=== PATIENT | female | born 1935 | race Caucasian/White ===

== ENCOUNTER → 2016-12-01 12:19 | Outpatient (CLI) | payer MEDICARE ==
[2015-06-11 10:37] VITALS: BMI 31.9
[~2016-12-01 12:19] MED LIST: ASPIRIN325 MG PO; GEMFIBROZIL600 MG PO; GLIMEPIRIDE4 MG PO; HYZAAR 100-25 T1 TAB PO; LANTUS INSULIN10 ML SC; NORVASC5 MG PO; PLAVIX75 MG PO; ZEBETA10 MG PO; [UNRECOGNIZED DRUG - OTHER]
== END | disposition home or self-care (01) ==
LOC: D.US 11-17 10:00
DX: N18.3 Chronic kidney disease, stage 3 (moderate) (principal); I10 Essential (primary) hypertension; E11.22 Type 2 diabetes mellitus with diabetic chronic kidney disease; Z68.30 Body mass index [BMI] 30.0-30.9, adult

== ENCOUNTER 2017-02-02 08:20 | Outpatient (CLI) | payer MEDICARE ==
--- NOTE | ~2017-02-02 | HEMODYNAMI ---
PATIENT:GINNY SANDERS MEDICAL RECORD: [id number] : 35 [id number] ADMISSION DATE: 02/02/17 Generatedon:02/03/20179:07 Patient name: GINNY SANDERS Patient #: [id number] SSN: : 1935 Date of study: 02/03/2017 Page: Of Hemodynamic Procedure Report Patient Data Patient Demographics Procedure consent was obtained First Name: GINNY Gender: Female Last Name: MARILYN : 1935 Middle Initial: KRISTEN Age: 81 year(s) Patient #: [id number] Race: Additional ID: [id number] Contact details [address]: [address] [place] [address] State: [place] City: [place] Zip code: [address] Past Medical History Allergies Allergen Reaction Date Comments Reported Other allergy 02/02/2017 Codeine Codeine 02/03/2017 Admission Admission Data Admission Date: 02/02/2017 Admission Time: 10:40 Admit Source: Other Room #: D.2118 Lab Results Lab Result Date: 02/02/2017 Lab Result Time: 9:00 Biochemistry Name Units Result Min Max BUN mg/dl 34 --(----)-* 7 18 Creatinine mg/dl 1.7 --(----)-* 0.6 1.3 CBC Name Units Result Min Max Hematocrit % 38 *-(----)-- 42 54 Hemoglobin g/dl 12.4 *-(----)-- 13.5 17.5 Procedure Procedure Types Cath Procedure Diagnostic Procedure FFR/IVUS Intra-Coronary IVUS Initial PCI Procedure Coronary Stent Initial Miscellaneous Procedures Moderate Sedation up to 15 minutes Procedure Description Procedure Date Procedure Date: 02/03/2017 Procedure Start Time: 8:44 Procedure End Time: 9:06 Procedure Staff Name Function Mendoza Lopez MD Performing Physician Rose Woods RT Scrub Glenis Hunter RN Nurse Vic Cervantes RT Monitor Rebeca Chin RT Monitor Procedure Data Cath Procedure Fluoroscopy Diagnostic fluoroscopy Total fluoroscopy Time: 4.9 time: 4.9 min min Diagnostic fluoroscopy Total fluoroscopy dose: 385 dose: 385 mGy mGy Contrast Material Contrast Material Type Amount (ml) Isovue 300 60 Entry Location Entry Primary Successful Side Size Upsize Upsize Entry Closure Succes sful Closure Location (Fr) 1 (Fr) 2 (Fr) Remarks Device Remarks Femoral Left 6 Fr Exoseal artery Short Estimated blood loss: 10 ml Procedure Complications No complications Procedure Medications Medication Administration Route Dosage Oxygen NC 2 l/min Heparin Flush Bag added to field 2 bags (1000units/500ml NS) 0.9% NaCl I.V. 100 ml/hr Fentanyl I.V. 50 mcg Versed I.V. 1 mg Fentanyl I.V. 50 mcg Versed I.V. 1 mg Heparin Bolus I.V. 4000 units Fentanyl I.V. 50 mcg Hemodynamics Rest HGB: 12.4 (g/dl) Heart Rate: 59 (bpm) Snapshots Pre Cath Intra NCS Post Cath Vital Signs Time Heart Resp SPO2 etCO2 [id number] NIBP (mmHg) Rhythm Pain Sedation Rate (ipm) (%) (mmHg) (mmHg) Status Level (bpm) 8:22:53 59 18 98 0 0 160/61(126) NSR 0 (11) 10(A) , No pain 8:27:42 61 17 95 0 0 154/64(118) NSR 0 (11) 10(A) , No pain 8:32:26 58 16 97 0 0 123/53(98) NSR 0 (11) 10(A) , No pain 8:37:11 59 17 95 0 0 111/46(83) NSR 0 (11) 10(A) , No pain 8:41:53 58 18 91 0 0 113/49(85) NSR 0 (11) 10(A) , No pain 8:46:36 64 18 89 0 0 101/51(80) NSR 0 (11) 9(A) , No pain 8:51:17 61 17 93 0 0 113/50(88) NSR 0 (11) 9(A) , No pain 8:55:59 65 17 97 0 0 111/50(92) NSR 0 (11) 9(A) , No pain 9:00:42 60 18 97 0 0 115/54(93) NSR 0 (11) 9(A) , No pain 9:05:23 98 0 0 No Cuff NSR 0 (11) 9(A) , No pain Medications Time Medication Route Dose Verified Delivered Reason Notes Effectiveness by by 8:27:39 Oxygen NC 2 Mendoza Magdaleno l/min John Rockwell RN 8:28:30 Heparin Flush added 2 Mendoza Magdaleno used for Bag to bags John Rockwell RN procedure (1000units/500ml field NS) 8:31:12 0.9% NaCl I.V. 100 Mendoza Magdaleno Per physician ml/hr John Rockwell RN 8:41:34 Fentanyl I.V. 50 Mendoza Magdaleno for sedation mcg John Rockwell RN 8:41:44 Versed I.V. 1 mg Mendoza Magdaleno for sedation John Rockwell RN 8:43:03 Fentanyl I.V. 50 Mendoza Magdaleno for sedation mcg John Rockwell RN 8:43:08 Versed I.V. 1 mg Mendoza Magdaleno for sedation John Rockwell RN 8:46:50 Heparin Bolus I.V. 4000 Mendoza Magdaleno for units John Rockwell RN anticoagulation 8:46:56 Fentanyl I.V. 50 Mendoza Magdaleno for sedation mcg John Rockwell RN Procedure Log Time Note 8:03:41 Diagnostic Cath status Elective 8:03:47 Rose Woods RT(R) sent for patient. Start room use. 8:03:50 Time tracking: Regular hours 8:03:56 Plan of Care:Hemodynamics will remain stable., Cardiac rhythm will remain stable., Comfort level will be maintained., Respiratory function will remain adequate., Patient/ family verbilizes understanding of procedure., Procedure tolerated without complication., Recovers from procedure without complications.. 8:15:18 H&P Date Dictated: 02/02/2017 Within 30 days and on chart., H&P Addendum completed by physician on day of procedure. (MUST COMPLETE FOR ALL OUTPATIENTS). 8:20:23 Patient received from Med II to CCL 1 Alert and oriented. Tansferred to table in Supine position. 8:21:40 Warm blankets applied, and irasema hugger turned on for patient comfort. 8:21:41 Correct patient and procedure confirmed by team. 8:21:44 Signed procedure consent form obtained from patient. 8:21:45 ECG and BP/O2 sat monitors applied to patient. 8:21:48 Vital chart was started 8:21:52 Baseline sample Acquired. 8:22:03 Rhythm: sinus rhythm 8:22:07 Full Disclosure recording started 8:22:35 Pre-procedure instructions explained to patient. 8:22:37 Pre-op teaching completed and patient verbalized understanding. 8:22:43 Family in patients room. 8:22:46 Patient NPO since Midnight. 8:23:04 Patient allergic to Codeine 8:23:09 Is the patient allergic to Iodine/contrast media? No. 8:23:21 Is patient on blood thinner?Yes 8:23:32 ACC The patient was administered the following blood thiners within the last 24 hours: ACCPlavix 8:24:36 Patient diabetic? Yes. 8:24:38 If diabetic: On Metformin? Yes 8:24:50 If on Metformin: Last Dose? 02/01/2017 8:25:08 Snore? Yes 8:25:18 Sleep apnea? No 8:25:21 Deviated septum? No 8:25:23 Opens mouth fully? Yes 8:25:26 Sticks out tongue? Yes 8:25:31 Airway obstruction? No ? 8:25:36 Dentures? No ? 8:25:54 Pre procedure: left dorsailis pedis pulse 2+ Normal; easily identifiable; not easily obliterated 8:26:01 Patient pain scale 0/10 ?. 8:26:13 IV patent on arrival in left forearm with 0.9% NaCl at O. 8:26:48 Lab results completed and on chart. 8:26:54 Left groin area was prepped with chlora-prep and draped in sterile fashion 8:27:19 Alarms reviewed by R. N. 8:27:19 Sharps counted by scrub and verified by R.N. 8:27:39 Oxygen 2 l/min NC was administered by Magdaleno Rockwell RN; ; 8:28:30 Heparin Flush Bag (1000units/500ml NS) 2 bags added to field was administered by Magdaleno Rockwell RN; used for procedure; 8:31:12 0.9% NaCl 100 ml/hr I.V. was administered by Magdaleno Rockwell RN; Per physician; 8:33:09 Previous problem with sedation/anesthesia? No ? 8:33:32 Physician paged 8:33:41 Use device set Femoral PCI 8:33:44 Tegaderm 4 x 4 opened to sterile field. 8:33:45 Acist Manifold opened to sterile field. 8:33:47 Acist Syringe opened to sterile field. 8:33:48 Acist Hand Control opened to sterile field. 8:33:50 Bag Decanter opened to sterile field. 8:33:51 Medline Cath Pack opened to sterile field. 8:33:51 Terumo 6Fr [place] Sheath opened to sterile field. 8:33:52 [place] 260cm J .035 wire opened to sterile field. 8:33:52 Merit BasixCompak Inflation Kit opened to sterile field. 8:34:01 [place] Whisper J 300cm 0.014 guide wire opened to sterile field. 8:36:04 Zero performed for pressure channel P1 8:40:35 Physician arrived 8:41:34 Fentanyl 50 mcg I.V. was administered by Magdaleno Rockwell RN; for sedation; 8:41:44 Versed 1 mg I.V. was administered by Magdaleno Rockwell RN; for sedation; 8:43:03 Fentanyl 50 mcg I.V. was administered by Magdaleno Rockwell RN; for sedation; 8:43:08 Versed 1 mg I.V. was administered by Magdaleno Rockwell RN; for sedation; 8:43:41 --------ALL STOP TIME OUT------ 8:43:43 Final Timeout: patient, procedure, and site verified with staff and physician. All members of the team are in agreement. 8:43:45 Left groin site verified by team. 8:43:50 Physical assessment completed. ASA score P 2 - A patient with mild systemic disease as per Mendoza Lopez MD. 8:43:54 Sedation plan: IV Moderate Sedation Versed, Fentanyl 8:44:02 Procedure started. 8:44:31 Local anesthetic to left femerol artery with Lidocaine 2% by Mendoza Lopez MD.INITIAL ACCESS ONLY 8:45:04 RaveMobileSafety.comtronic Launcher 6Fr AR 2.0 SH guide catheter opened to sterile field. 8:45:31 Study PCI Site: [place] dRCA has 75% stenosis. 8:46:21 A 6 Fr Short sheath was inserted into the Left Femoral artery 8:46:34 6 Fr AR 2 guide catheter was inserted over the wire 8:46:50 Heparin Bolus 4000 units I.V. was administered by Magdaleno Rockwell RN; for anticoagulation; 8:46:56 Fentanyl 50 mcg I.V. was administered by Magdaleno Rockwell RN; for sedation; 8:47:10 WHISPER wire advanced. 8:48:39 Wire advanced across lesion. 8:48:52 [place] Jena Eagleye IVUS Catheter opened to sterile field. 8:49:02 IVUS catheter advanced over wire. 8:50:04 IVUS pass to RCA lesion performed. 8:50:06 IVUS catheter removed over wire. 8:51:34 Inflation Number: 1 A Keshav OTW 2.25 x 15 stent was prepped and advanced across the Dist RCA. The stent was deployed at 13 CALLY for 0:10 (min:sec). 8:53:45 Stent catheter was removed intact over wire. 8:54:23 Inflation Number: 1 A Keshav OTW 3.0 x 15 stent was prepped and advanced across the Mid RCA. The stent was deployed at 17 CALLY for 0:10 (min:sec). 8:54:32 Inflation number: 2 The stent balloon was then re-inflated across the Mid RCA to 15 CALLY for 0:10 (min:sec). 8:54:44 MULTIPLE INFLATIONS AT 17ATM 8:55:27 ACC Post-intervention MICHAEL Flow is 0. 8:55:37 ACC Post-intervention MICHAEL Flow is 3. 8:55:43 Stent catheter was removed intact over wire. 8:55:44 Wire removed. 8:55:45 Guide catheter removed. 8:56:02 Cordis 6Fr Exoseal opened to sterile field. 8:56:23 Sheath removed intact; hemostasis achieved with Exoseal to the Left Femoral artery. 8:56:37 Procedure ended.(Physican Out) 8:56:55 Fluoroscopy time 04.90 minutes. 8:56:59 Flurop Dose total: 385 8:56:59 Fluoroscopy dose: 385 mGy 8:57:04 Contrast amount:Isovue 300 60ml. 8:57:06 Sharps counted by scrub and verified by EvelioN. 8:57:10 Insertion/operative site no bleeding no hematoma. 8:57:14 Post-op/insertion site Left Femoral artery dressed using a 4 x 4 and Tegaderm. 8:57:29 Post Procedure Pulses reassessed and unchanged 8:57:37 Post-procedure physical assessment completed. ASA score P 2 - A patient with mild systemic disease as per Mendoza Lopez MD. 8:57:42 Post procedure rhythm: unchanged. 8:57:44 Estimated blood loss: 10 ml 8:57:51 Post procedure instruction explained to patient.Patient verbalizes understanding. 8:57:56 Patient needs reinforcement of post procedure teaching. 8:59:11 Procedure and supply charges have been captured, reviewed, submitted and are correct. 8:59:18 Procedure Complication : No complications 9:00:53 Procedure type changed to Cath procedure, Diagnostic procedure, FFR/IVUS, Intra-Coronary IVUS Initial, PCI procedure, Coronary Stent Initial, Miscellaneous Procedures, Moderate Sedation up to 15 minutes 9:06:22 Vital chart was stopped 9:06:26 See physician's report for complete and final results. 9:06:29 Report given to PCU. 9:06:33 Patient transfered to PCU with Stretcher. 9:06:37 Procedure ended. 9:06:37 Full Disclosure recording stopped 9:06:50 End room use (Document Last) Intervention Summary Intervention Notes Time ActionType Lesion and Equipment Action# Pressure Duration Attributes Used 8:51:34 Place stent Dist RCA [place] OTW 1 13 00:10 2.25 x 15 stent 8:54:23 Place stent Mid RCA [place] OTW 1 17 00:10 3.0 x 15 stent 8:54:32 Reinflate Mid RCA [place] OTW 2 15 00:10 stent 3.0 x 15 balloon stent Device Usage Item Name Manufacture Quantity Catalog Hospital Part Current Minimal Lot# / Number Charge Number Stock Stock Serial# Code Tegaderm 4 3M 1 [id number] 600872 5 x 4 Acist Acist 1 95697 926215 071376 755944 5 Manifold Medical Systems Inc Acist Acist 1 69710 236915 782666 288538 20 Syringe Medical Systems Inc Acist Hand Acist 1 77064 140022 870017 067284 5 Nuserv Systems Inc Bag Microtek 1 [facility] 234401 26822 123203 5 Decanter [employer] Inc. Medline Cardinal 1 [id number] 388291 34868 135754 5 Cath Pack Health Terumo 6Fr Terumo 1 [id number] 086321 918597 530304 [address] [facility] [place] 1 634394 534750 009219 282293 30 260cm J .035 wire Merit Merit 1 [id number] 836326 763630 663871 15 BasixCompak Medical Inflation Kit [place] 1 [id number] 685080 831456 584842 5 Whisper J Vascular 300cm 0.014 guide wire Medtronic Medtronic 1 [id number] 903367 33126 376609 1 Launcher 6Fr AR 2.0 SH guide catheter [place] 1 [id number] 732772 193324 868151 8 Jena Eagleye IVUS Catheter Keshav OTW Medtronic 1 [id number] 747966 32834 884466 5 [id number] 2.25 x 15 stent [place] OTW Medtronic 1 [id number] 306714 527106 365847 5 [id number] 3.0 x 15 stent Cordis 6Fr Cardinal 1 [id number] 280777 499798 651887 10 [facility] Signature Audit [place] Stage Time Signature Unsigned Intra-Procedure 02/03/2017 Rebeca Chin 9:07:04 AM RT(R) Signatures Monitor : Vic Cervantes RT Signature : Date : Time : Monitor : Rebeca Chin Signature : RT Date : Time : [facility] [address] [place] [address]
--- NOTE | ~2017-02-02 | HEMODYNAMI ---
PATIENT:GINNY SANDERS MEDICAL RECORD: [id number] : 35 LOCATION:RALPH ADMISSION DATE: 02/02/17 Generatedon:02/02/201710:38 Patient name: GINNY SANDERS Patient #: [id number] SSN: : 1935 Date of study: 02/02/2017 Page: Of Hemodynamic Procedure Report Patient Data Patient Demographics Procedure consent was obtained First Name: GINNY Gender: Female Last Name: MARILYN : 1935 Middle Initial: KRISTEN Age: 81 year(s) Patient #: [id number] Race: Additional ID: [id number] Contact details [address]: [address] [place] [address] State: [place] City: [place] Zip code: [address] Past Medical History Allergies Allergen Reaction Date Comments Reported Other allergy 02/02/2017 Codeine Admission Admission Data Admission Date: 02/02/2017 Admission Time: 8:20 Admit Source: Other Lab Results Lab Result Date: 02/02/2017 Lab Result Time: 9:00 Biochemistry Name Units Result Min Max BUN mg/dl 34 --(----)-* 7 18 Creatinine mg/dl 1.7 --(----)-* 0.6 1.3 CBC Name Units Result Min Max Hematocrit % 38 *-(----)-- 42 54 Hemoglobin g/dl 12.4 *-(----)-- 13.5 17.5 Procedure Procedure Types Cath Procedure Diagnostic Procedure LHC LHC w/Coronaries FFR/IVUS Intra-Coronary IVUS Initial PCI Procedure Coronary Stent Initial Miscellaneous Procedures Moderate Sedation up to 30 minutes Procedure Description Procedure Date Procedure Date: 02/02/2017 Procedure Start Time: 10:12 Procedure End Time: 10:34 Procedure Staff Name Function Mendoza Lopez MD Performing Physician Rsoe Woods RT Scrub Glenis Hunter RN Nurse Vincenzo Amaral RT Monitor Procedure Data Cath Procedure Fluoroscopy Diagnostic fluoroscopy Total fluoroscopy Time: 3.9 time: 3.9 min min Diagnostic fluoroscopy Total fluoroscopy dose: 889 dose: 889 mGy mGy Contrast Material Contrast Material Type Amount (ml) Isovue 300 90 Entry Location Entry Primary Successful Side Size Upsize Upsize Entry Closure Succes sful Closure Location (Fr) 1 (Fr) 2 (Fr) Remarks Device Remarks Femoral Right 5 Fr 6 Fr Exoseal artery Short Estimated blood loss: 10 ml Diagnostic catheters Device Type Used For End Catheter Placement Cordis 5Fr Pigtail Procedure Catheter (MP) Cordis 5Fr JL 4.0 Procedure Catheter (MP) Cordis 5Fr 3DRC Catheter Procedure (MP) Procedure Complications No complications Procedure Medications Medication Administration Route Dosage Oxygen NC 2 l/min Lidocaine 2% added to field 20 Heparin Flush Bag added to field 2 bags (1000units/500ml NS) 0.9% NaCl I.V. 100 ml/hr Versed I.V. 1 mg Fentanyl I.V. 50 mcg Heparin Bolus I.V. 4000 units Versed I.V. 1 mg Fentanyl I.V. 50 mcg Integrilin (Bolus I.V. 7.3 ml 2mg/ml) Plavix P.O. 600 mg Hemodynamics Rest Heart Rate: 55 (bpm) Pressure Samples Time Site Value (mmHg) Purpose Heart Use Rate(bpm) 10:17 LV 114/5,19 Snapshot 62 Snapshots Pre Cath Intra NCS Post Cath Vital Signs Time Heart Resp SPO2 NIBP (mmHg) Rhythm Pain Sedation Rate (ipm) (%) Status Level (bpm) 9:59:23 57 14 100 135/67(101) NSR 0 (11) 10(A) , No pain 10:03:43 64 20 100 132/66(109) NSR 0 (11) 10(A) , No pain 10:08:01 62 14 99 127/69(107) NSR 0 (11) 10(A) , No pain 10:12:22 62 26 98 130/59(106) NSR 0 (11) 10(A) , No pain 10:16:37 62 15 98 103/54(67) NSR 0 (11) 9(A) , No pain 10:20:56 62 15 97 107/43(70) NSR 0 (11) 9(A) , No pain 10:25:08 63 14 97 94/49(69) NSR 0 (11) 9(A) , No pain 10:29:20 61 17 97 102/49(74) NSR 0 (11) 10(A) , No pain 10:33:34 61 17 97 93/46(65) NSR 0 (11) 10(A) , No pain Medications Time Medication Route Dose Verified Delivered Reason Notes Effectiveness by by 10:11:07 Lidocaine 2% added 20ml Mendoza Donaldson for local to vial John Lopez MD anesthetic field 10:13:01 Oxygen NC 2 Mendoza Buffie used for l/min John Hunter RN procedure 10:13:13 Heparin Flush added 2 Mendoza Mendoza used for Bag to bags John Lopez MD procedure (1000units/500ml field NS) 10:13:24 0.9% NaCl I.V. 100 Mendoza Buffie Per physician ml/hr John Hunter RN 10:13:34 Versed I.V. 1 mg Mendoza Galvin for sedation John Hunter RN 10:13:39 Fentanyl I.V. 50 Mendoza Gonzalezie for sedation mcg John Hunter RN 10:18:25 Heparin Bolus I.V. 4000 Mendoza Gonzalezie for verifi ed units John Hunter RN anticoagulation with dr lopez 10:23:04 Versed I.V. 1 mg Mendoza Gonzalezie for sedation John Hunter RN 10:23:08 Fentanyl I.V. 50 Mendoza Gonzalezie for sedation mcg John Hunter RN 10:26:02 Integrilin I.V. 7.3 Mendoza Galvin for Wasted (Bolus 2mg/ml) ml John Hunter RN antiplatelet 2.7 ml therapy of vial 10:33:06 Plavix P.O. 600 Mendoza Galvin for mg John Hunter RN antiplatelet therapy Procedure Log Time Note 9:35:58 Informed consent obtained and on chart 9:36:01 Admit Source: Other 9:36:16 Diagnostic Cath status Elective 9:36:18 Rose Woods RT(R) sent for patient. Start room use. 9:36:22 Time tracking: Regular hours 9:36:26 Plan of Care:Hemodynamics will remain stable., Cardiac rhythm will remain stable., Comfort level will be maintained., Respiratory function will remain adequate., Patient/ family verbilizes understanding of procedure., Procedure tolerated without complication., Recovers from procedure without complications.. 9:36:35 H&P Date Dictated: 01/26/2017 Within 30 days and on chart., H&P Addendum completed by physician on day of procedure. (MUST COMPLETE FOR ALL OUTPATIENTS). 9:38:32 Lab Result : Hemoglobin 12.4 g/dl 9:38:32 Lab Result : Hematocrit 38 % 9:38:32 Lab Result : BUN 34 mg/dl 9:38:32 Lab Result : Creatinine 1.7 mg/dl 9:38:38 Lab results completed and on chart. 9:44:14 Patient received from Pre/Post Procedure Room to CCL 2 Alert and oriented. Tansferred to table in Supine position. 9:44:15 Warm blankets applied, and irasema hugger turned on for patient comfort. 9:44:15 Correct patient and procedure confirmed by team. 9:44:16 ECG and BP/O2 sat monitors applied to patient. 9:44:18 Pre-procedure instructions explained to patient. 9:44:18 Pre-op teaching completed and patient verbalized understanding. 9:44:20 Family in waiting room. 9:44:21 Patient NPO since Midnight. 9:44:31 Patient allergic to Other allergyCodeine 9:44:33 Is the patient allergic to Iodine/contrast media? No. 9:54:08 Is patient on blood thinner?No 9:54:09 Was the patient premedicated? Yes 9:54:11 Patient diabetic? Yes. 9:54:13 If diabetic: On Metformin? No 9:54:17 Snore? Yes 9:54:19 Sleep apnea? No 9:54:25 Dentures? No ? 9:54:29 Patient pain scale 0/10 ?. 9:54:36 IV patent on arrival in left forearm with 0.9% NaCl at KVO. 9:54:42 Right groin area was prepped with chlora-prep and draped in sterile fashion 9:54:44 Alarms reviewed by R. N. 9:54:45 Sharps counted by scrub and verified by R.N. 9:54:46 Physician paged 9:58:10 Vital chart was started 9:58:19 Baseline sample Acquired. 9:58:21 Rhythm: sinus rhythm 9:58:23 Full Disclosure recording started 9:58:28 Use device set Femoral Dx 9:58:30 Tegaderm 4 x 4 opened to sterile field. 9:58:31 Acist Hand Control opened to sterile field. 9:58:31 Acist Manifold opened to sterile field. 9:58:32 Acist Syringe opened to sterile field. 9:58:33 Bag Decanter opened to sterile field. 9:58:37 Medline Cath Pack opened to sterile field. 9:58:37 Terumo 5Fr [place] Sheath opened to sterile field. 9:58:38 [place] 260cm J .035 wire opened to sterile field. 9:58:38 Diagnostic Infinity 5Fr Multipack catheter opened to sterile field. 10:09:22 Physician arrived 10:: --------ALL STOP TIME OUT------ :: Final Timeout: patient, procedure, and site verified with staff and physician. All members of the team are in agreement. 10:09:24 Right groin site verified by team. 10::26 Physical assessment completed. ASA score P 2 - A patient with mild systemic disease as per Mendoza Lopez MD. 10:09:29 Sedation plan: IV Moderate Sedation Versed, Fentanyl 10:10:43 Zero performed for pressure channel P1 10:10:46 Zero performed for pressure channel P1 10:11:07 Lidocaine 2% 20ml vial added to field was administered by Mendoza Lopez MD; for local anesthetic; 10:11:53 Procedure started. 10:12:37 Local anesthetic to right femoral artery with Lidocaine 2% by Mendoza Lopez MD.INITIAL ACCESS ONLY 10:13:01 Oxygen 2 l/min NC was administered by Glenis Hunter RN; used for procedure; 10:13:13 Heparin Flush Bag (1000units/500ml NS) 2 bags added to field was administered by Mendoza Lopez MD; used for procedure; 10:13:24 0.9% NaCl 100 ml/hr I.V. was administered by Glenis Hunter RN; Per physician; 10:13:34 Versed 1 mg I.V. was administered by Glenis Hunter RN; for sedation; 10:13:39 Fentanyl 50 mcg I.V. was administered by Glenis Hunter RN; for sedation; 10:15:48 A 5 Fr sheath was inserted into the Right Femoral artery 10:16:29 A Cordis 5Fr Pigtail Catheter (MP) was advanced over the wire and used for Procedure. 10:17:28 LV gram done using MANLEY 10:17:30 Injector settings: Ml/sec: 10, Volume: 20, 10:17:35 EF : 60 % 10:17:45 Terumo 6Fr [place] Sheath opened to sterile field. 10:17:52 A Cordis 5Fr JL 4.0 Catheter (MP) was advanced over the wire and used for Procedure. 10:18:19 LCA angiography performed. 10:18:25 Heparin Bolus 4000 units I.V. was administered by Glenis Hunter RN; for anticoagulation; verified with dr lopez 10:19:09 Ventrua Agile Healthisper J 300cm 0.014 guide wire opened to sterile field. 10:19:10 Axis SemiconductorixCompak Inflation Kit opened to sterile field. 10:20:04 Catheter exchanged over wire. 10:20:05 Catheter exchanged over wire. 10:21:53 [place]ag[place]e IVUS Catheter opened to sterile field. 10:22:00 A Cordis 5Fr 3DRC Catheter (MP) was advanced over the wire and used for Procedure. 10:22:04 RCA angiography performed. 10:22:24 Catheter removed. 10:22:30 Sheath upsized to a 6 Fr Short. 10:22:51 Cordis 6FR XBLAD 3.5 guide catheter opened to sterile field. 10:22:57 6 Fr xblad 3.5 guide catheter was inserted over the wire 10:23:00 ClearStarisper wire advanced. 10:23:04 Versed 1 mg I.V. was administered by Glenis Hunter RN; for sedation; 10:23:08 Fentanyl 50 mcg I.V. was administered by Glenis Hunter RN; for sedation; 10:23:31 Wire advanced across lesion. 10:23:36 IVUS catheter advanced over wire. 10:23:48 IVUS pass to LAD lesion performed. 10:24:45 IVUS catheter removed over wire. 10:26:02 Integrilin (Bolus 2mg/ml) 7.3 ml I.V. was administered by Glenis Hunter RN; for antiplatelet therapy; Wasted 2.7 ml of vial 10:28:53 Inflation Number: 1 A [place] OTW 3.5 x 08 stent was prepped and advanced across the Prox LAD. The stent was deployed at 13 CALLY for 0:10 (min:sec). 10::17 Inflation number: 2 The stent balloon was then re-inflated across the Prox LAD to 11 CALLY for 0:10 (min:sec). 10::24 Inflation number: 3 The stent balloon was then re-inflated across the Prox LAD to 11 CALLY for 0:10 (min:sec). 10::39 Stent catheter was removed intact over wire. 10::40 Wire removed. 10::40 Guide catheter removed. 10:29:49 Cordis 6Fr Exoseal opened to sterile field. 10::55 Sheath removed intact; hemostasis achieved with Exoseal to the Right Femoral artery. 10::57 Procedure ended.(Physican Out) 10::55 Fluoroscopy time 03.90 minutes. 10::58 Fluoroscopy dose: 889 mGy 10::58 Flurop Dose total: 889 10:31:01 Contrast amount:Isovue 300 90ml. 10:31:02 Sharps counted by scrub and verified by R.N. 10:31:12 Insertion/operative site no bleeding no hematoma. 10:31:14 Post-op/insertion site Right Femoral artery dressed using a 4 x 4 and Tegaderm. 10:31:17 Post right femoral artery:stable, soft, clean and dry 10:32:14 Post Procedure Pulses reassessed and unchanged 10:32:19 Post-procedure physical assessment completed. ASA score P 2 - A patient with mild systemic disease as per Mendoza Lopez MD. 10:32:20 Post procedure rhythm: unchanged. 10:32:22 Estimated blood loss: 10 ml 10:32:23 Post procedure instruction explained to patient.Patient verbalizes understanding. 10:32:23 Patient needs reinforcement of post procedure teaching. 10:32:32 Procedure type changed to Cath procedure, Diagnostic procedure, LHC, LHC w/Coronaries, FFR/IVUS, Intra-Coronary IVUS Initial, PCI procedure, Coronary Stent Initial, Miscellaneous Procedures, Moderate Sedation up to 30 minutes 10:33:06 Plavix 600 mg P.O. was administered by Glenis Hunter RN; for antiplatelet therapy; 10:34:47 Procedure and supply charges have been captured, reviewed, submitted and are correct. 10:34:49 Procedure Complication : No complications 10:34:51 Vital chart was stopped 10:34:51 See physician's report for complete and final results. 10:34:53 Report given to Pre/Post Procedure Room. 10:34:55 Patient transfered to Pre/Post Procedure Room with Stretcher. 10:34:56 Procedure ended. 10:34:56 Full Disclosure recording stopped 10:35:02 End room use (Document Last) Intervention Summary Intervention Notes Time ActionType Lesion and Equipment Action# Pressure Duration Attributes Used 10:28:53 Place stent Prox LAD [place] OTW 1 13 00:10 3.5 x 08 stent 10:29:17 Reinflate Prox LAD [place] OTW 2 11 00:10 stent 3.5 x 08 balloon stent 10:29:24 Reinflate Prox LAD Keshav OTW 3 11 00:10 stent 3.5 x 08 balloon stent Device Usage Item Name Manufacture Quantity Catalog Hospital Part Current Minima l Lot# / Number Charge Number Stock Stock Serial# Code Tegaderm 4 3M 1 [id number] 615574 025992 965349 5 x 4 Acist Hand Acist 1 46548 587581 317710 690531 5 Control Medical Systems Inc Acist Acist 1 52587 926071 432495 882250 5 Manifold Medical Systems Inc Acist Acist 1 31488 448696 306916 395926 20 Syringe Medical Systems Inc Bag Microtek 1 2002S 810851 06100 866382 5 Decanter Medical Inc. Medline Cardinal 1 [id number] 153309 39029 559360 5 Cath Pack Health Terumo 5Fr Terumo 1 [id number] 178107 533935 124491 [address] [place] [address] [facility] 1 527245 617601 142475 644373 30 260cm J .035 wire Diagnostic Cardinal 1 [id number] 637885 94460 620120 30 Infinity Health 5Fr Multipack catheter Cordis 5Fr Cardinal 1 750404 5 Pigtail Health Catheter (MP) Cordis 5Fr Cardinal 1 514608 5 JL 4.0 Health Catheter (MP) Terumo 6Fr Terumo 1 GWF672 139341 498666 962137 40 [place] Sheath Ventura Ventura 1 [id number] 166081 381352 334126 5 Whisper J Vascular 300cm 0.014 guide wire Merit Merit 1 [id number] 210541 065555 997498 15 BasixCompak Medical Inflation Kit [place] 1 [id number] 327574 174720 928757 8 [place] IVUS Catheter Cordis 5Fr Cardinal 1 347227 5 [facility] Health Catheter (MP) Cordis 6FR Cardinal 1 [id number] 124117 746979 381208 10 XBLAD 3.5 Health guide catheter Keshav OTW Medtronic 1 [id number] 384947 1606056 718529 5 [id number] 3.5 x 08 stent Cordis 6Fr Cardinal 1 EX600 843707 293128 515838 10 [facility] Spot formerly PlacePop Signature Audit [place] Stage Time Signature Unsigned Intra-Procedure 02/02/2017 Vincenzo Amaral 10:38:17 AM RT(R) Signatures Monitor : Vincenzo Amaral RT Signature : Date : Time : [place] [id number] [place] [address]
[2017-02-02 08:39] VITALS: BP 157/57; BMI 31.0
[2017-02-02 09:05] LABS: BASOPHILS 0.3 % (0-2); HEMOGLOBIN 12.4 g/dL (12-16); IMMATURE GRANULOCYTES 0.3 % (0-5); LYMPHOCYTES 21.1 % (15-50); MCH 28.4 pg (26.0-34.0); MCHC 32.6 g/dL (31.0-37.0); MEAN PLATELET VOLUME 11.6 fL (7.4-10.4); MONOCYTES 6.4 % (2-11); NEUTROPHILS 68.9 % (40-80); PLATELET COUNT 255 10x3/uL (130-400); RBC 4.37 10x6/uL (4.00-5.40); WBC 12.1 10x3/uL (4.8-10.8)
[2017-02-02 09:19] LABS: ANION GAP 14.3 mmol/L (8-16); CALCIUM 8.8 mg/dL (8.5-10.1); CARBON DIOXIDE 25.6 mmol/L (21.0-32.0); CREATININE - SERUM 1.7 mg/dL (0.6-1.3); POTASSIUM - SERUM 3.9 mmol/L (3.5-5.1)
--- NOTE | 2017-02-02 11:06 | NUR ---
TRANSFER FROM [facility] BY BED. VS WNL. TIGHT GROIN STABLE WITHOUT BLEEDING OR HEMATOMA NOTED. WILL MONITOR.
[2017-02-02 11:10] VITALS: BP 146/64; BMI 31.0
[2017-02-02 12:10] VITALS: BP 133/62
--- NOTE | 2017-02-02 15:07 | NUR ---
BED REST. GROIN STABLE. ESCORTED TO BR. WILL CONT. PLAN OF CARE.
[2017-02-02 15:26] VITALS: BP 115/54
--- NOTE | 2017-02-02 19:32 | NUR ---
ASSESSMENT COMPLETE. A&O. RESPERATIONS EVEN ON RA. IV TO LEFT WRIST SL, SITE CLEAN AND DRY. REMINDED OF NOTHING TO EAT OR DRINK AFTER MN USE TO HAVING HEART CATH IN AM. PT STATED UNDERSTANDING. DENIES PAIN OR NEEDS, BED LOW, CL IN REACH.
[2017-02-02 20:00] VITALS: BP 147/60
--- NOTE | 2017-02-02 23:59 | NUR ---
RESTING WITH EYES CLOSED, RESPERATIONS EVEN, NO S/S DISTRESS NOTED
--- NOTE | 2017-02-03 01:57 | NUR ---
LYING IN BED WITH EYES CLOSED, CALL LIGHT IN REACH. WILL CONTINUE WITH PLAN OF CARE.
[2017-02-03 04:00] VITALS: BP 115/67
--- NOTE | 2017-02-03 05:50 | NUR ---
CONSENT SIGNED FOR CARDIAC CATH, WITNESSED AND PLACED IN CHART.
[2017-02-03 07:42] VITALS: BP 138/59
--- NOTE | 2017-02-03 08:18 | NUR ---
PRE-OPS GIVEN. TO RADIOTELEGRAPH OPERATOR SERVICER BY BED.
--- NOTE | 2017-02-03 09:00 | OP ---
PATIENT NAME: GINNY SANDERS MEDICAL RECORD: [id number] :35 LOCATION:D.M2 D.2118 ADMISSION DATE:02/02/17 SURGEON: LILA SERRANO MD DATE OF OPERATION: 02/02/2017 PROCEDURES: 1. PTCA stent LAD. 2. Intravascular ultrasound of the LAD. 3. Left heart catheterization. 4. Selective coronary angiography. 5. Left ventriculogram. INDICATION: Angina, coronary artery disease. PROCEDURE IN DETAIL: After informed consent was obtained and after a detailed explanation of risks, benefits as well as alternative therapies, the patient elected to proceed with angiogram and angioplasty. The right femoral area was prepped and draped in normal sterile fashion. The right femoral artery was cannulated via modified Seldinger technique with placement of 6-Welsh sheath. All catheters exchanged through this sheath. FINDINGS: Left ventriculogram performed in standard 30-degree MANLEY view, reveals good cardiac wall motion throughout all segments. Overall ejection fraction estimated 60%. SELECTIVE CORONARY ANGIOGRAPHY: 1. Left main showed no significant angiographic disease. 2. Left anterior descending has 655 to 70% stenosis proximally prior to the previously placed stent. 3. Left circumflex has previously placed stents, these are patent with no significant restenosis. 4. Right coronary has previously placed stents, these are patent. There was a questionable hazy area of stenosis in the mid vessel and 75% stenosis distally. PTCA STENT OF THE LAD: The stent used is a 3.5 x 8 mm Keshav. Result was 0% residual stenosis. OVERALL IMPRESSION: Successful percutaneous transluminal coronary angioplasty stent of the left anterior descending. PLAN: PTCA stent of the RCA in the near future. TRANSINT:[id number] Voice Confirmation ID: [id number] DOCUMENT ID: [id number] LILA SERRANO MD at 0900 CC: [id number] DICTATION DATE: 02/02/17 1042 PLATFORM CONSULTANT: 02/02/17 1155 ADM IN [place] [address] [place] [address]
--- NOTE | 2017-02-03 09:23 | NUR ---
BACK FROM DINKEY OPERATOR SLAG. VS WNL. LEFT GROIN STABLE WITHOUT BLEEDING OR HEMATOMA NOTED. WILL MONITOR.
[2017-02-03] MEDS ORDERED: PLAVIX75 MG PO (12:04)
[2017-02-03] MEDS ORDERED: ASPIRIN81 MG PO (12:04)
--- NOTE | 2017-02-03 12:40 | NUR ---
BED REST UP. GROIN STABLE.
--- NOTE | 2017-02-03 13:04 | NUR ---
IV AND TELEMETRY DCD. DC PLANS GIVEN. UNDERSTANDING VOICED. ESCORTED TO CAR BY W/C.
--- NOTE | 2017-02-04 13:09 | OP ---
PATIENT NAME: GINNY SANDERS MEDICAL RECORD: [id number] :35 LOCATION:D.M2 D.2118 ADMISSION DATE:02/02/17 SURGEON: LILA SERRANO MD DATE OF OPERATION: 02/03/2017 PROCEDURES: 1. PTCA stent, RCA. 2. Selective coronary angiography. 3. Intravascular ultrasound. INDICATION: Angina and coronary artery disease. PROCEDURE IN DETAIL: After informed consent was obtained and after detailed explanation of risks, benefits as well as alternative therapies, the patient elected to proceed with angiogram and angioplasty. The left femoral area is prepped and draped in normal sterile fashion. The left femoral artery was cannulated via modified Seldinger technique with placement of 6-[place]alian sheath. All catheters exchanged through this sheath. FINDINGS: The right coronary has 80% stenosis in the mid vessel and 80% stenosis in the distal vessel. The distal vessel was addressed with a 2.25 x 15 mm Keshav, and the mid vessel with a 3.0 x 15 mm [place]. Result was 0% residual throughout. OVERALL IMPRESSION: Successful percutaneous transluminal coronary angioplasty stent of the right coronary artery, going from 80% initial stenosis to 0% residual stenosis. TRANSINT:[id number] Voice Confirmation ID: [id number] DOCUMENT ID: [id number] LILA SERRANO MD at 1309 CC: [id number] DICTATION DATE: 02/03/17 09 SUPERVISOR HARD CANDY: 02/03/17 0911 DIS IN 02/03/17 [place] [id number] [place] [id number]
--- NOTE | 2017-02-04 13:09 | DS ---
PATIENT:GINNY MCKNIGHT :35 MEDICAL RECORD: [id number] DISCHARGE SUMMARY ADMISSION DATE: 02/02/17 DISCHARGE DATE: 02/03/17 DIAGNOSES: 1. Angina. 2. Coronary artery disease. 3. Percutaneous transluminal coronary angioplasty stent to right coronary artery and left anterior descending this admission. 4. Hypertension. 5. Hyperlipidemia. HOSPITAL COURSE: Ms. Mcknight presents with anginal symptomatology, found to have 2-vessel coronary artery disease, underwent successful PTCA stent of above territories, had an uneventful postop course. She was discharged home with the addition of aspirin and Plavix to her medical regimen. Will follow up with [facility] in 1 month. TRANSINT:[id number] Voice Confirmation ID: [id number] DOCUMENT ID: [id number] LILA SERRANO MD at 1309 CC: [id number] DICTATION DATE: 02/03/17 0859 CHIEF ORTHOPTIST: 02/03/17 1114 DIS IN 02/03/17 [facility] [address] [place] [address]
--- NOTE | 2017-02-25 16:56 | OP ---
PATIENT NAME: GINNY SANDERS MEDICAL RECORD: [id number] :35 LOCATION:D.CAT ADMISSION DATE: SURGEON: LILA SERRANO MD DATE OF OPERATION: 02/03/2017 ADDENDUM Intravascular ultrasound was performed of the RCA. The RCA was 80% stenosed by IVUS. TRANSINT:[id number] Voice Confirmation ID: [id number] DOCUMENT ID: [id number] LILA SERRANO MD at 1656 CC: [id number] DICTATION DATE: 02/09/17 1044 WHITE SUGAR BOILER: 02/09/17 1111 DEP CLI 02/03/17 [facility] [address] [place] [address]
--- NOTE | 2017-02-25 16:56 | OP ---
PATIENT NAME: GINNY SANDERS MEDICAL RECORD: [id number] :35 LOCATION:D.CAT ADMISSION DATE: SURGEON: LILA SERRANO MD DATE OF OPERATION: 02/02/2017 ADDENDUM Intravascular ultrasound was performed of the left anterior descending. The left anterior descending had 65% to 70% stenosis confirmed by intravascular ultrasound. TRANSINT:[id number] Voice Confirmation ID: [id number] DOCUMENT ID: [id number] LILA SERRANO MD at 1656 CC: [id number] DICTATION DATE: 02/09/17 1045 MAINTENANCE ENGINEER OIL FIELD: 02/09/17 1112 DEP CLI 02/03/17 [place] [place] [address]
== END 2017-02-03 14:39 | disposition home or self-care (01) ==
LOC: OBSVTIME → D.CATH 08:20 → D.M2 10:40 → D.CATH 10:40 → D.M2 10:40 → OBSVTIME 10:40 → D.CATH 02-03 14:39 → D.M2 02-03 14:39
PROVIDERS: Internal Medicine Interventional Cardiology
DX: I25.119 Atherosclerotic heart disease of native coronary artery with unspecified angina pectoris (principal); I10 Essential (primary) hypertension; E78.5 Hyperlipidemia, unspecified; E11.9 Type 2 diabetes mellitus without complications; Z01.812 Encounter for preprocedural laboratory examination
CPT/HCPCS: 92978 ×2; 93458; C9600 ×2

== ENCOUNTER 2017-11-16 09:08 | Outpatient (CLI) | payer MEDICARE ==
[~2017-11-16] VITALS: Ht 160 cm; Wt 79.1 kg
--- NOTE | ~2017-11-16 | DS ---
PATIENT:GINNY MCKNIGHT :35 MEDICAL RECORD: [id number] DISCHARGE SUMMARY ADMISSION DATE: 11/16/17 DISCHARGE DATE: 11/17/17 DATE OF DISCHARGE: 11/17/2017. DIAGNOSES: 1. Angina. 2. Coronary artery disease. 3. Percutaneous transluminal coronary angioplasty stent right coronary artery and left circumflex this admission. HOSPITAL COURSE: Mrs. Mcknight presents with anginal symptomatology, found to have 3-vessel coronary artery disease, underwent PTCA stent of the left circumflex and RCA, underwent PTCA for in-stent restenosis of the LAD, was discharged home with the addition of aspirin and Plavix to her medical regimen. Will follow up with [facility] in 1 month. TRANSINT:[id number] Voice Confirmation ID: [id number] DOCUMENT ID: [id number] LILA SERRANO MD at 1325 CC: [id number] DICTATION DATE: 11/17/17 1306 PITCH FLAKER: 11/17/17 1311 DEP CLI 11/17/[address] [address]
--- NOTE | ~2017-11-16 | HEMODYNAMI ---
PATIENT:GINNY SANDERS MEDICAL RECORD: [id number] : 35 LOCATION:[facility] ADMISSION DATE: 11/16/17 Generatedon:11/16/201711:58 Patient name: GINNY SNADERS Patient #: [id number] SSN: : 1935 Date of study: 11/16/2017 Page: Of Hemodynamic Procedure Report Patient Data Patient Demographics Procedure consent was obtained First Name: GINNY Gender: Female Last Name: MARILYN : 1935 Middle Initial: KRISTEN Age: 82 year(s) Patient #: [id number] Race: Additional ID: [id number] Contact details [address]: [address] [place] [address] State: [place] City: [place] Zip code: [address] Past Medical History Allergies Allergen Reaction Date Comments Reported Other allergy 02/02/2017 Codeine Codeine 02/03/2017 Admission Admission Data Admission Date: 11/16/2017 Admission Time: 9:08 Procedure Procedure Types Cath Procedure Diagnostic Procedure [facility] w/Coronaries FFR/IVUS Intra-Coronary IVUS Initial Sedation Charges Moderate Sedation up to 15 minutes PCI Procedure Coronary Stent Coronary Stent Initial Procedure Description Procedure Date Procedure Date: 11/16/2017 Procedure Start Time: 11:40 Procedure End Time: 11:54 Procedure Staff Name Function Mendoza Lopez MD Performing Physician Janeth Watson RT Monitor Magdaleno Rockwell RN Nurse Yeimi Harris RT Scrub Procedure Data Cath Procedure Fluoroscopy Diagnostic fluoroscopy Total fluoroscopy Time: 2.8 time: 2.8 min min Diagnostic fluoroscopy Total fluoroscopy dose: 231 dose: 231 mGy mGy Contrast Material Contrast Material Type Amount (ml) Isovue 300 84 Entry Location Entry Primary Successful Side Size Upsize Upsize Entry Closure Succes sful Closure Location (Fr) 1 (Fr) 2 (Fr) Remarks Device Remarks Femoral Right 5 Fr 6 Fr Exoseal artery Short Estimated blood loss: 5 ml Diagnostic catheters Device Type Used For End Catheter Placement MULTIPACK Pigtail 5 Fr LV Angiography catheter MULTIPACK JL 4.0 5Fr Left Coronary catheter Angiography MULTIPACK 3DRC 5Fr Right Coronary catheter Angiography Procedure Complications No complications Procedure Medications Medication Administration Route Dosage Oxygen etCO2 Nasal cannula 2 l/min Heparin Flush Bag added to field 2 bags (1000units/500ml NS) 0.9% NaCl I.V. 100 ml/hr Fentanyl I.V. 50 mcg Versed I.V. 1 mg Fentanyl I.V. 50 mcg Versed I.V. 1 mg Heparin Bolus I.V. 4000 units Integrilin (Bolus I.V. 7.3 ml 2mg/ml) Plavix P.O. 600 mg Hemodynamics Rest Heart Rate: 53 (bpm) Pressure Samples Time Site Value (mmHg) Purpose Heart Use Rate(bpm) 11:41 LV 145/6,13 Snapshot 63 Snapshots Pre Cath Intra NCS Post Cath Vital Signs Time Heart Resp SPO2 etCO2 NIBP (mmHg) Rhythm Pain Sedation Rate (ipm) (%) (mmHg) Status Level (bpm) 11:17:40 54 16 98 33.7 203/74(160) NSR 0 (11) 10(A) , No pain 11:23:28 54 16 99 33.7 200/77(164) NSR 0 (11) 10(A) , No pain 11:28:05 60 17 100 33 191/74(147) NSR 0 (11) 9(A) , No pain 11:32:31 61 17 94 0 139/65(116) NSR 0 (11) 9(A) , No pain 11:36:47 59 17 93 0 128/60(98) NSR 0 (11) 9(A) , No pain 11:41:07 55 17 97 36.7 138/63(114) NSR 0 (11) 9(A) , No pain 11:46:29 54 16 91 0 127/51(101) NSR 0 (11) 9(A) , No pain 11:51:40 53 17 98 13.5 128/56(97) NSR 0 (11) 9(A) , No pain 11:56:10 52 17 98 30 129/51(100) NSR 0 (11) 9(A) , No pain Medications Time Medication Route Dose Verified Delivered Reason Notes Effectiveness by by 11:17:00 Oxygen etCO2 2 Mendoza Magdaleno Per physician Nasal l/min John Rockwell RN cannula 11:17:12 Heparin Flush added 2 Mendoza Dolan used for Bag to bags John Rockwell RN procedure (1000units/500ml field NS) 11:17:22 0.9% NaCl I.V. 100 Mendoza Dolan Per physician ml/hr John Rockwell RN 11:25:14 Fentanyl I.V. 50 Mendoza Dolan for sedation mcg John Rockwell RN 11:25:20 Versed I.V. 1 mg Mendoza Dolan for sedation John Rockwell RN 11:40:39 Fentanyl I.V. 50 Mendoza Dolan for sedation mcg John Rockwell RN 11:40:43 Versed I.V. 1 mg Mendoza Dolan for sedation John Rockwell RN 11:46:11 Heparin Bolus I.V. 4000 Mendoza Dolan for units John Rockwell RN anticoagulation 11:49:19 Integrilin I.V. 7.3 Mendoza Dolan for (Bolus 2mg/ml) ml John Rockwell RN antiplatelet therapy 11:54:58 Plavix P.O. 600 Mendoza Dolan for mg John Rockwell RN antiplatelet therapy Procedure Log Time Note 11:00:56 Magdaleno Rockwell RN sent for patient. Start room use. 11:04:51 Time tracking: Regular hours (M-F 7:00 - 5:00) 11:04:54 Plan of Care:Hemodynamics will remain stable., Cardiac rhythm will remain stable., Comfort level will be maintained., Respiratory function will remain adequate., Patient/ family verbilizes understanding of procedure., Procedure tolerated without complication., Recovers from procedure without complications.. 11:10:24 Patient received from Pre/Post Procedure Room to CCL 1 Alert and oriented. Tansferred to table in Supine position. 11:10:25 Warm blankets applied, and irasema hugger turned on for patient comfort. 11:10:26 Correct patient and procedure confirmed by team. 11:10:27 Signed procedure consent form obtained from patient. 11:10:27 ECG and BP/O2 sat monitors applied to patient. 11:10:28 Full Disclosure recording started 11:15:25 Vital chart was started 11:17:00 Oxygen 2 l/min etCO2 Nasal cannula was administered by Magdaleno Rockwell RN; Per physician; 11:17:12 Heparin Flush Bag (1000units/500ml NS) 2 bags added to field was administered by Magdaleno Rockwell RN; used for procedure; 11:17:22 0.9% NaCl 100 ml/hr I.V. was administered by Magdaleno Rockwell RN; Per physician; 11:17:26 Baseline sample Acquired. 11:17:34 Rhythm: sinus rhythm 11:17:41 H&P Date Dictated: 11/16/2017 Within 30 days and on chart., H&P Addendum completed by physician on day of procedure. (MUST COMPLETE FOR ALL OUTPATIENTS). 11:17:42 Pre-procedure instructions explained to patient. 11:17:43 Pre-op teaching completed and patient verbalized understanding. 11:17:45 Family in waiting room. 11:17:46 Patient NPO since Midnight. 11:17:49 Is the patient allergic to Iodine/contrast media? No. 11:17:50 Was the patient premedicated? No 11:17:52 Is patient on blood thinner?No 11:17:54 Patient diabetic? Yes. 11:17:55 If diabetic: On Metformin? No 11:17:58 Previous problem with sedation/anesthesia? No ? 11:18:00 Snore? Yes 11:18:01 Sleep apnea? No 11:18:02 Deviated septum? No 11:18:03 Opens mouth fully? Yes 11:18:03 Sticks out tongue? Yes 11:18:06 Airway obstruction? No ? 11:18:12 Dentures? Yes in tight 11:20:29 Pre procedure: right dorsailis pedis pulse 1+ Palpable, but thready & weak; easily obliterated 11:20:31 Pre procedure: left dorsailis pedis pulse 1+ Palpable, but thready & weak; easily obliterated 11:20:32 Patient pain scale 0/10 ?. 11:20:41 IV patent on arrival in left forearm with 0.9% NaCl at [facility]. 11:20:43 Lab results completed and on chart. 11:20:49 Right groin area was prepped with chlora-prep and draped in sterile fashion 11:20:50 Alarms reviewed by R. N. 11:20:50 Sharps counted by scrub and verified by R.N. 11:21:37 Baseline sample Acquired. 11:23:46 Physician arrived 11::46 --------ALL STOP TIME OUT------ 11::47 Final Timeout: patient, procedure, and site verified with staff and physician. All members of the team are in agreement. 11:23:50 Right groin site verified by team. 11:23:53 Physical assessment completed. ASA score P 2 - A patient with mild systemic disease as per Mendoza Lopez MD. 11:23:56 Sedation plan: IV Moderate Sedation Medication:Versed, Fentanyl 11:25:14 Fentanyl 50 mcg I.V. was administered by Magdaleno Rockwell RN; for sedation; 11:25:20 Versed 1 mg I.V. was administered by Magdaleno Rockwell RN; for sedation; 11:28:48 Zero performed for pressure channel P1 11:38:46 Procedure started. 11:38:50 Use device set Femoral Dx 11:38:51 ACIST Syringe (49693) opened to sterile field. 11:38:51 Bag Decanter (2002S) opened to sterile field. 11:38:52 Medline Cath Pack ([id number]) opened to sterile field. 11:38:52 DIAGNOSTIC WIRE .035 260cm J wire (223815) opened to sterile field. 11:38:54 ACIST Hand Control (70850) opened to sterile field. 11:38:54 ACIST Manifold (58836) opened to sterile field. 11:38:54 DIAGNOSTIC Multipack 5Fr catheter set ([id number]) opened to sterile field. 11:38:55 Tegaderm 4 x 4 (1626W) opened to sterile field. 11:38:56 SHEATH Prelude 5Fr 0.035 (JDE-0T-90-035) opened to sterile field. 11:40:03 Local anesthetic to right femoral artery with Lidocaine 2% by Mendoza Lopez MD.INITIAL ACCESS ONLY 11:40:12 A 5 Fr sheath was inserted into the Right Femoral artery 11:40:39 Fentanyl 50 mcg I.V. was administered by Magdaleno Rockwell RN; for sedation; 11:40:43 Versed 1 mg I.V. was administered by Magdaleno Rockwell RN; for sedation; 11:41:11 A MULTIPACK Pigtail 5 Fr catheter was advanced over the wire and used for LV Angiography. 11:41:21 LV hemodynamics recorded. 11:41:22 LV gram done using MANLEY 11:41:24 Injector settings: Ml/sec: 5, Volume: 15, 11:41:31 EF : 60 % 11:41:34 Catheter removed. 11:41:38 A MULTIPACK JL 4.0 5Fr catheter was advanced over the wire and used for Left Coronary Angiography. 11:42:09 LCA angiography performed. 11:42:13 Injector settings: Ml/sec: 3, Volume: 6, 11:43:05 Catheter removed. 11:43:11 A MULTIPACK 3DRC 5Fr catheter was advanced over the wire and used for Right Coronary Angiography. 11:43:45 RCA angiography performed. 11:43:48 Injector settings: Ml/sec: 3, Volume: 6, 11:44:00 Catheter removed. 11:44:00 Proceeding to intervention. 11:44:31 GUIDE 6FR HS I SH catheter ([id number]) opened to sterile field. 11:44:31 SHEATH 6Fr Prelude ([id number]) opened to sterile field. 11:44:32 INFLATOR Merit BasixCompak (LC9886) opened to sterile field. 11:44:33 [place] IVUS Catheter (78994F) opened to sterile field. 11:44:34 CHOICE PT Extra Support 182cm wire ([id number]) opened to sterile field. 11:45:20 Sheath upsized to a 6 Fr Short. 11:45:30 6 Fr hs 1 sh guide catheter was inserted over the wire 11:45:36 choice pt wire advanced. 11:45:38 Wire advanced across lesion. 11:46:11 Heparin Bolus 4000 units I.V. was administered by Magdaleno Rockwell RN; for anticoagulation; 11:46:22 IVUS catheter advanced over wire. 11:48:20 IVUS pass to RCA lesion performed. 11:48:20 IVUS catheter removed over wire. 11:49:06 Place stent Inflation Number: 1 A LEE RX 2.5 x 15 stent ([id number]) was prepped and advanced across the Dist RCA. The stent was deployed at 15 CALLY for 0:10 (min:sec). 11:49:19 Integrilin (Bolus 2mg/ml) 7.3 ml I.V. was administered by Magdaleno Rockwell RN; for antiplatelet therapy; 11:50:39 Stent catheter was removed intact over wire. 11:51:08 Place stent Inflation Number: 1 A LEE RX 3.0 x 22 stent ([id number]) was prepped and advanced across the Prox RCA. The stent was deployed at 21 CALLY for 0:10 (min:sec). 11:51:13 Stent catheter was removed intact over wire. 11:51:14 Wire removed. 11:51:15 Guide catheter removed. 11:51:23 EXOSEAL 6Fr (EX600) opened to sterile field. 11:51:37 Sheath removed intact; hemostasis achieved with Exoseal to the Right Femoral artery. 11:53:03 Procedure ended.(Physican Out) 11:53:12 Fluoroscopy time 02.80 minutes. 11:53:16 Fluoroscopy dose: 231 mGy 11:53:16 Flurop Dose total: 231 11:53:21 Contrast amount:Isovue 300 84ml. 11:53:23 Sharps counted by scrub and verified by R.N. 11:53:24 Insertion/operative site no bleeding no hematoma. 11:53:27 Post-op/insertion site Right Femoral artery dressed using a 4 x 4 and Tegaderm. 11:53:38 Post right femoral artery:stable 11:53:40 Post Procedure Pulses reassessed and unchanged 11:53:43 Post procedure rhythm: unchanged. 11:53:45 Estimated blood loss: 5 ml 11:54:06 Post procedure instruction explained to patient.Patient verbalizes understanding. 11:54:06 Patient needs reinforcement of post procedure teaching. 11:54:38 Procedure type changed to Cath procedure, Diagnostic procedure, C, [facility] w/Coronaries, FFR/IVUS, Intra-Coronary IVUS Initial, Sedation Charges, Moderate Sedation up to 15 minutes, PCI procedure, Coronary Stent, Coronary Stent Initial 11:54:39 Procedure and supply charges have been captured, reviewed, submitted and are correct. 11:54:44 Procedure Complication : No complications 11:54:46 Vital chart was stopped 11:54:51 Report given to Pre/Post Procedure Room. 11:54:53 Patient transfered to Pre/Post Procedure Room with Stretcher. 11:54:55 Procedure ended. 11:54:55 Full Disclosure recording stopped 11:54:58 Plavix 600 mg P.O. was administered by Magdaleno Rockwell RN; for antiplatelet therapy; 11:55:01 ACC-PCI Only Patient was given prescriptions, or instructed by Mendoza Lopez MD to start/continue the following medications upon discharge: Effient 11:55:03 End room use (Document Last) Intervention Summary Intervention Notes Time ActionType Lesion and Equipment Used Action# Pressure Duration Attributes 11:49:06 Place stent Dist RCA LEE RX 2.5 x 1 15 00:10 15 stent ([id number]) 11:51:08 Place stent Prox RCA LEE RX 3.0 x 1 21 00:10 22 stent ([id number]) Device Usage Item Name Manufacture Quantity Catalog Number Hospital Part Current Minimal Lot# / Charge Number Stock Stock Serial# Code ACIST Syringe Acist 1 06239 234657 219553 194781 20 (52575) [employer] Bag Decanter Microtek 1 [id number] 28795 077727 5 () Medical Inc. Medline Cath Cardinal 1 [id number] 994691 49799 094588 5 KIT digital Health ([id number]) DIAGNOSTIC WIRE [place] 1 935163 385112 691600 333444 30 .035 260cm J wire (126424) ACIST Hand Acist 1 83221 616158 637045 915288 5 Control (97482) Medical Systems Inc ACIST Manifold Acist 1 72119 828403 470537 235961 5 (70849) Medical Systems Inc DIAGNOSTIC Cardinal 1 [id number] 677098 50527 089045 30 Multipack 5Fr Health catheter set ([id number]) Tegaderm 4 x 4 3M 1 1626W 508351 605124 367791 5 (1626W) SHEATH Prelude Merit 1 EXM-4H-61-035 858650 313608 790622 5 5Fr 0.035 Medical (DSV-7L-67-035) MULTIPACK Cardinal 1 792345 5 Pigtail 5 Fr Health catheter MULTIPACK JL Cardinal 1 774841 5 4.0 5Fr Health catheter MULTIPACK 3DRC Cardinal 1 853469 5 5Fr catheter Health GUIDE 6FR HS I Medtronic 1 [id number] 477513 46788 113097 1 SH catheter ([id number]) SHEATH 6Fr Merit 1 [id number] 598469 370682 178600 5 Prelude Medical ([id number]) INFLATOR Merit Merit 1 UQ8328 671342 431317 938414 [facility] (JN4348) [place] 1 86182B 988779 521414 246323 8 [place] IVUS Catheter (62110X) CHOICE PT Extra [place] 1 [id number] 688805 309648 198501 5 Support 182cm Scientific wire ([id number]) LEE RX 2.5 x Medtronic 1 [id number] 573828 3131673 563807 5 [id number] 15 stent ([id number]) LEE RX 3.0 x Medtronic 1 [id number] 020588 5569868 506096 5 [id number] 22 stent ([id number]) EXOSEAL 6Fr Cardinal 1 EX600 263378 856668 953300 10 (EX600) Health Signature Audit [place] Stage Time Signature Unsigned Intra-Procedure 11/16/2017 Janeth Watson 11:58:11 AM RT(R) Signatures Monitor : Janeth Watson RT Signature : Date : Time : [place] [id number] [place] [address]
--- NOTE | ~2017-11-16 | OP ---
PATIENT NAME: GINNY SANDERS MEDICAL RECORD: [id number] :35 LOCATION:D.CAT ADMISSION DATE: SURGEON: LILA SERRANO MD DATE OF OPERATION: 11/16/2017 PROCEDURES: 1. PTCA stent RCA. 2. Intravascular ultrasound. 3. Left heart catheterization. 4. Selective coronary angiography. 5. Left ventriculogram. INDICATION: Angina and coronary artery disease. PROCEDURE IN DETAIL: After informed consent was obtained and after a detailed description of the risks, benefits as well as alternative therapies, the patient elected to proceed with angiogram and angioplasty. The right femoral area was prepped and draped in normal sterile fashion. Right femoral artery was cannulated via modified Seldinger technique with placement of 6-Tajik sheath. All catheters exchanged through this sheath. FINDINGS: Left ventriculogram was performed in a standard 30-degree MANLEY view, reveals good cardiac wall motion throughout all segments. Overall ejection fraction estimated at 60%. SELECTIVE CORONARY ANGIOGRAPHY: 1. Left main is with no significant angiographic disease. 2. Left anterior descending has previously placed stent with 90% in-stent restenosis at one point in the mid vessel. 3. Left circumflex has previously placed stent with 80% in-stent restenosis in the mid vessel. 4. Right coronary has 80% stenosis proximally confirmed by intravascular ultrasound and an 80% stenosis in the mid distal vessel. PTCA STENT OF THE RCA: The stents used were 2.5 x 14 in the mid distal vessel and 3.0 x 22 in the proximal vessel. Result was 0% residual stenosis. OVERALL IMPRESSION: Successful percutaneous transluminal coronary angioplasty stent of the right coronary artery going from 80% initial stenosis times 2 to 0% residual. PLAN: PTCA stent of the LAD and circumflex tomorrow. TRANSINT:[id number] Voice Confirmation ID: [id number] DOCUMENT ID: [id number] LILA SERRANO MD at 1325 CC: [id number] DICTATION DATE: 11/16/17 1159 ELECTRONICS MECHANIC: 11/16/17 1249 DEP CLI 11/17/17 [place] [address]
--- NOTE | ~2017-11-16 | OP ---
PATIENT NAME: GINNY SANDERS MEDICAL RECORD: [id number] :35 LOCATION:D.CAT ADMISSION DATE: SURGEON: LILA SERRANO MD DATE OF OPERATION: 11/17/2017 PROCEDURES: 1. PTCA stent left circumflex. 2. PTCA, LAD. 3. Selective coronary angiography. INDICATION: Angina and coronary artery disease. PROCEDURE IN DETAIL: After informed consent was obtained and after a detailed description of the risks, benefits as well as alternative therapies, the patient elected to proceed with angiogram and angioplasty. The left femoral area was prepped and draped in normal sterile fashion. Left femoral artery was cannulated via modified Seldinger technique with placement of 6-Italian sheath. All catheters exchanged through this sheath. FINDINGS: The left circumflex had 80% stenosis in mid vessel. The LAD has 75% stenosis in the mid vessel. The circumflex was addressed with a 2.75 x 18 mm Ledger stent. We used a 2.75 stent balloon for the in-stent restenosis in the LAD. Result was 0% residual throughout. OVERALL IMPRESSION: Successful percutaneous transluminal coronary angioplasty stent of the left circumflex and percutaneous transluminal coronary angioplasty of the left anterior descending going from 75% to 80% initial stenosis to 0% residual. TRANSINT:[id number] Voice Confirmation ID: [id number] DOCUMENT ID: [id number] LILA SERRANO MD at 1325 CC: [id number] DICTATION DATE: 11/17/17 1307 HOUSE BUILDER: 11/17/17 1315 DEP CLI 11/17/17 [place] [id number]
--- NOTE | ~2017-11-16 | HEMODYNAMI ---
PATIENT:GINNY SANDERS MEDICAL RECORD: [id number] : 35 [id number] ADMISSION DATE: 11/16/17 Generatedon:11/17/201713:13 Patient name: GINNY SANDERS Patient #: [id number] SSN: : 1935 Date of study: 11/17/2017 Page: Of Hemodynamic Procedure Report Patient Data Patient Demographics Procedure consent was obtained First Name: GINNY Gender: Female Last Name: MARILYN : 1935 Middle Initial: KRISTEN Age: 82 year(s) Patient #: [id number] Race: Additional ID: [id number] Contact details [address]: [address] [place] [address] State: [place] City: [place] Zip code: [address] Past Medical History Allergies Allergen Reaction Date Comments Reported Other allergy 02/02/2017 Codeine Codeine 02/03/2017 Codeine 11/17/2017 Admission Admission Data Admission Date: 11/16/2017 Admission Time: 9:08 Room #: D.2119 Height (in.): 63 BSA: 1.83 (m2) Height (cm.): 160.02 BMI: 31 (kg/m2) Weight (lbs.): 175 Weight (kg.): 79.38 Procedure Procedure Types Cath Procedure Diagnostic Procedure FFR/IVUS Intra-Coronary IVUS Initial PCI Procedure Coronary Stent Coronary Stent Initial PTCA PTCA Initial Procedure Description Procedure Date Procedure Date: 11/17/2017 Procedure Start Time: 12:56 Procedure End Time: 13:13 Procedure Staff Name Function Mendoza Lopez MD Performing Physician Bk Lorenzana RT Monitor Magdaleno Rockwell RN Nurse Vic Cervantes RT Scrub Procedure Data Cath Procedure Fluoroscopy Diagnostic fluoroscopy Total fluoroscopy Time: 2.1 time: 2.1 min min Diagnostic fluoroscopy Total fluoroscopy dose: dose: 89.96 mGy 89.96 mGy Contrast Material Contrast Material Type Amount (ml) Isovue 300 46 Entry Location Entry Primary Successful Side Size Upsize Upsize Entry Closure Succes sful Closure Location (Fr) 1 (Fr) 2 (Fr) Remarks Device Remarks Femoral Left 6 Fr Exoseal artery Short Estimated blood loss: 20 ml Procedure Medications Medication Administration Route Dosage Oxygen etCO2 Nasal cannula 2 l/min Heparin Flush Bag added to field 2 bags (1000units/500ml NS) 0.9% NaCl I.V. 100 ml/hr Fentanyl I.V. 50 mcg Versed I.V. 1 mg Fentanyl I.V. 50 mcg Versed I.V. 1 mg Heparin Bolus I.V. 4000 units Fentanyl I.V. 50 mcg Hemodynamics Rest BSA: 1.83 (m2) O2 Consumption: Estimated: 161.68 (ml/min) O2 Consumption indexed : Estimated:88.35 (ml/min/m) Heart Rate: 67 (bpm) Snapshots Pre Cath Intra NCS Post Cath Vital Signs Time Heart Resp SPO2 etCO2 NIBP (mmHg) Rhythm Pain Sedation Rate (ipm) (%) (mmHg) Status Level (bpm) 12:06:53 68 17 96 6.7 185/83(142) NSR 0 (11) 10(A) , No pain 12:11:25 66 17 99 35.8 189/77(134) NSR 0 (11) 10(A) , No pain 12:15:55 66 17 100 34.3 182/76(144) NSR 0 (11) 10(A) , No pain 12:20:26 66 17 99 32.1 179/71(125) NSR 0 (11) 10(A) , No pain 12:24:48 69 16 97 0 136/59(101) NSR 0 (11) 10(A) , No pain 12:29:04 66 16 96 0 117/56(103) NSR 0 (11) 10(A) , No pain 12:33:22 67 17 96 31.3 126/54(93) NSR 0 (11) 10(A) , No pain 12:37:40 64 17 96 0 118/54(87) NSR 0 (11) 10(A) , No pain 12:41:56 65 16 95 2.2 115/52(87) NSR 0 (11) 10(A) , No pain 12:46:12 65 17 96 0 118/56(86) NSR 0 (11) 10(A) , No pain 12:50:30 63 17 95 8.9 117/55(92) NSR 0 (11) 9(A) , No pain 12:54:48 64 16 97 20.9 123/54(105) NSR 0 (11) 9(A) , No pain 12:59:06 62 17 99 29.1 141/64(111) NSR 0 (11) 9(A) , No pain 13:03:25 64 18 95 0 125/54(100) NSR 0 (11) 9(A) , No pain 13:07:45 63 16 95 32.8 133/61(108) NSR 0 (11) 9(A) , No pain 13:12:05 63 15 97 13.4 133/55(106) NSR 0 (11) 9(A) , No pain Medications Time Medication Route Dose Verified Delivered Reason Notes Effectiveness by by 12:07:48 Oxygen etCO2 2 Mendoza Dolan Per physician Nasal l/min John Rockwell RN cannula 12:07:56 Heparin Flush added 2 Mendoza Dolan used for Bag to bags John Rockwell RN procedure (1000units/500ml field NS) 12:08:06 0.9% NaCl I.V. 100 Mendoza Dolan Per physician ml/hr John Rockwell RN 12:49:54 Fentanyl I.V. 50 Mendoza Magdaleno for sedation mcg John Rockwell RN 12:50:02 Versed I.V. 1 mg Mendoza Magdaleno for sedation John Rockwell RN 12:56:56 Fentanyl I.V. 50 Mendoza Trujilloy for sedation mcg John Rockwell RN 12:57:00 Versed I.V. 1 mg Mendoza Magdaleno for sedation John Rockwell RN 12:59:04 Heparin Bolus I.V. 4000 Mendozasalo Trujilloy for units John Rockwell RN anticoagulation 12:59:11 Fentanyl I.V. 50 Mendoza Trujilloy for sedation mcg John Rockwell RN Procedure Log Time Note 11:48:46 PCI Cath Status : Elective 11:49:38 Bk Lorenzana RT(R) (CV) sent for patient. Start room use. 11:49:40 Time tracking: Regular hours (M-F 7:00 - 5:00) 11:49:47 Plan of Care:Hemodynamics will remain stable., Cardiac rhythm will remain stable., Comfort level will be maintained., Respiratory function will remain adequate., Patient/ family verbilizes understanding of procedure., Procedure tolerated without complication., Recovers from procedure without complications.. 12:03:38 Patient received from Med II to CCL 3 Alert and oriented. Tansferred to table in Supine position. 12:03:40 Warm blankets applied, and irasema hugger turned on for patient comfort. 12:03:41 Correct patient and procedure confirmed by team. 12:03:44 Signed procedure consent form obtained from patient. 12:05:17 Vital chart was started 12:06:35 Baseline sample Acquired. 12:06:40 Rhythm: sinus rhythm 12:06:47 Full Disclosure recording started 12:07:15 H&P Date Dictated: 11/16/2017 H&P Addendum completed by physician on day of procedure. (MUST COMPLETE FOR ALL OUTPATIENTS). 12:07:18 Pre-procedure instructions explained to patient. 12:07:19 Pre-op teaching completed and patient verbalized understanding. 12:07:32 Family in waiting room. 12:07:35 Patient NPO since Breakfast. 12:07:48 Oxygen 2 l/min etCO2 Nasal cannula was administered by Magdaleno Rockwell RN; Per physician; 12:07:54 Patient allergic to Codeine 12:07:56 Heparin Flush Bag (1000units/500ml NS) 2 bags added to field was administered by Magdaleno Rockwell RN; used for procedure; 12:08:05 Is patient on blood thinner?Yes 12:08:06 0.9% NaCl 100 ml/hr I.V. was administered by Magdaleno Rcokwell RN; Per physician; 12:08:08 ACC The patient was administered the following blood thiners within the last 24 hours: ACCPlavix 12:08:32 Patient diabetic? Yes. 12:08:34 If diabetic: On Metformin? No 12:08:36 ----Pre-sedation anethsthesia assessment.---- 12:08:47 Previous problem with sedation/anesthesia? No ? 12:08:48 Snore? Yes 12:08:50 Sleep apnea? No 12:08:51 Deviated septum? No 12:08:52 Opens mouth fully? Yes 12:08:53 Sticks out tongue? Yes 12:08:57 Airway obstruction? No ? 12:09:05 Dentures? Yes IN TIGHT 12:09:38 Pre procedure: left dorsailis pedis pulse 1+ Palpable, but thready & weak; easily obliterated 12:09:49 IV patent on arrival in right hand with 0.9% NaCl at [facility]. 12:10:54 Left groin area was prepped with chlora-prep and draped in sterile fashion 12:10:57 Alarms reviewed by R. N. 12:10:57 Sharps counted by scrub and verified by R.N. 12:13:29 Use device set Femoral Dx 12:13:31 ACIST Syringe (98370) opened to sterile field. 12:13:31 Bag Decanter (2002S) opened to sterile field. 12:13:32 Medline Cath Pack ([id number]) opened to sterile field. 12:13:34 DIAGNOSTIC WIRE .035 260cm J wire (495727) opened to sterile field. 12:13:36 ACIST Hand Control (67889) opened to sterile field. 12:13:37 ACIST Manifold (03746) opened to sterile field. 12:14:47 Tegaderm 4 x 4 (1626W) opened to sterile field. 12:15:15 SHEATH Prelude 6Fr 0.035 ([id number]-6P-43-035) opened to sterile field. 12:15:58 INFLATOR Merit BasixCompak (NP1099) opened to sterile field. 12:15:59 CHOICE PT Extra Support 182cm wire ([id number]) opened to sterile field. 12:26:29 Zero performed for pressure channel P1 12:30:31 DR. LOPEZ IN ROOM 1 12:31:28 Patient Height : 63 inches 12:31:41 Patient Weight : 175 lbs 12:48:54 Physician arrived 12:48:54 --------ALL STOP TIME OUT------ 12:48:55 Final Timeout: patient, procedure, and site verified with staff and physician. All members of the team are in agreement. 12:48:57 Left groin site verified by team. 12:49:00 Physical assessment completed. ASA score P 2 - A patient with mild systemic disease as per Mendoza Lopez MD. 12:49:05 Sedation plan: IV Moderate Sedation Medication:Versed, Fentanyl 12:49:54 Fentanyl 50 mcg I.V. was administered by Magdaleno Rockwell RN; for sedation; 12:50:02 Versed 1 mg I.V. was administered by Magdaleno Rockwell RN; for sedation; 12:55:55 Procedure started. 12:56:52 Local anesthetic to right femoral artery with Lidocaine 2% by Mendoza Lopez MD.INITIAL ACCESS ONLY 12:56:56 Fentanyl 50 mcg I.V. was administered by Magdaleno Rockwell RN; for sedation; 12:57:00 Versed 1 mg I.V. was administered by Magdaleno Rockwell RN; for sedation; 12:57:31 GUIDE 6FR EBU 4.0 guide catheter ([id number]) opened to sterile field. 12:58:07 A 6 Fr Short sheath was inserted into the Left Femoral artery 12:58:23 6 Fr EBU 4.0 guide catheter was inserted over the wire 12:59:04 Heparin Bolus 4000 units I.V. was administered by Magdaleno Rockwell RN; for anticoagulation; 12:59:04 CHOICE wire advanced. 12:59:11 Fentanyl 50 mcg I.V. was administered by Magdaleno Rockwell RN; for sedation; 12:59:16 CIRCUMFLEX 12:59:21 Wire advanced across lesion. 13:01:23 Place stent Inflation Number: 1 A LEE RX 2.75 x 18 stent ([id number]) was prepped and advanced across the Mid CX. The stent was deployed at 17 CALLY for 0:10 (min:sec). 13:01:30 Stent catheter was removed intact over wire. 13:02:08 Wire redirected to LAD. 13:02:41 Inflation number: 1 The stent balloon was then re-inflated across the Prox LAD to 17 CALLY for 0:10 (min:sec). 13:02:48 Stent catheter was removed intact over wire. 13:02:49 Wire removed. 13:02:50 Guide catheter removed. 13:04:32 EXOSEAL 6Fr (EX600) opened to sterile field. 13:05:25 Sheath removed intact; hemostasis achieved with Exoseal to the Left Femoral artery. 13:05:30 Procedure ended.(Physican Out) 13:05:46 Fluoroscopy time 02.10 minutes. 13:05:52 Flurop Dose total: 89.96 13:05:52 Fluoroscopy dose: 89.96 mGy 13:06:10 Contrast amount:Isovue 300 46ml. 13:06:12 Sharps counted by scrub and verified by R.N. 13:06:21 Procedure type changed to Cath procedure, Diagnostic procedure, FFR/IVUS, Intra-Coronary IVUS Initial, PCI procedure, Coronary Stent, Coronary Stent Initial, PTCA, PTCA Initial 13:12:32 Insertion/operative site no bleeding no hematoma. 13:12:35 Post-op/insertion site Left Femoral artery dressed using a 4 x 4 and Tegaderm. 13:12:42 Post left femerol artery:stable 13:12:45 Post Procedure Pulses reassessed and unchanged 13:12:51 Post-procedure physical assessment completed. ASA score P 2 - A patient with mild systemic disease as per Mendoza Lopez MD. 13:12:54 Post procedure rhythm: sinus rhythm 13:12:59 Estimated blood loss: 20 ml 13:13:01 Post procedure instruction explained to patient.Patient verbalizes understanding. 13:13:02 Patient needs reinforcement of post procedure teaching. 13:13:03 Procedure and supply charges have been captured, reviewed, submitted and are correct. 13:13:05 Vital chart was stopped 13:13:06 See physician's report for complete and final results. 13:13:09 Report given to Pre/Post Procedure Room. 13:13:16 Patient transfered to Pre/Post Procedure Room with Stretcher. 13:13:18 Procedure ended. 13:13:18 Full Disclosure recording stopped 13:13:22 End room use (Document Last) Intervention Summary Intervention Notes Time ActionType Lesion and Equipment Used Action# Pressure Duration Attributes 13:01:23 Place stent Mid CX LEE RX 2.75 x 1 17 00:10 18 stent ([id number]) 13:02:41 Reinflate Prox LAD LEE RX 2.75 x 1 17 00:10 stent 18 stent balloon ([id number]) Device Usage Item Name Manufacture Quantity Catalog Number Hospital Part Current Minimal Lot# / Charge Number Stock Stock Serial# Code ACIST Syringe Acist 1 60848 601042 500177 [id number] 20 (97919) [employer] Bag Decanter Microtek 1 356105 85593 880338 5 (2002S) Medical Inc. Medline Cath Cardinal 1 [id number] 985429 78285 500140 5 [facility] ([id number]) DIAGNOSTIC WIRE [facility] [place] 1 405688 545407 818059 872599 30 .035 260cm J wire (173717) ACIST Hand Acist 1 83995 237958 292927 972499 5 Control (00026) [employer] ACIST Manifold Acist 1 25561 290280 411189 594013 5 (71812) [employer] Tegaderm 4 x 4 3M 1 1626W 395872 972187 615977 5 (1626W) SHEATH Prelude Merit 1 [id number] 135804 8489406 610994 5 6Fr 0.035 Medical (YNJ-7X-14-035) INFLATOR Merit Merit 1 UL0202 761980 864023 773547 15 [employer] (KI2471) CHOICE PT Extra [place] 1 [id number] 461442 631155 704595 5 Support 182cm Scientific wire ([id number]) GUIDE 6FR EBU Medtronic 1 [id number] 080220 42931 779235 1 4.0 guide catheter ([id number]) LEE RX 2.75 x Medtronic 1 [id number] 383818 5256364 992900 5 [id number] 18 stent ([id number]) EXOSEAL 6Fr Cardinal 1 EX600 377454 391085 395846 10 (EX600) Health Signature Audit [place] Stage Time Signature Unsigned Intra-Procedure 11/17/2017 Bk Lorenzana 1:13:43 PM RT(R) (CV) Signatures Monitor : Bk Lorenzana RT Signature : Date : Time : [facility] [address] [place] [address]
[~2017-11-16 09:08] MED LIST changes: +ASPIRIN81 MG PO
[2017-11-16 10:41] VITALS: BMI 31.0
[2017-11-16] MEDS ORDERED: ZYLOPRIM100 MG PO (10:49)
[2017-11-16] MEDS ORDERED: FUROSEMIDE20 MG PO (10:53)
[2017-11-16 10:56] LABS: BASOPHILS 0.2 % (0-2); EOSINOPHILS 3.7 % (0-7); HEMATOCRIT 38.1 % (36.0-48.0); HEMOGLOBIN 12.4 g/dL (12-16); IMMATURE GRANULOCYTES 0.3 % (0-5); LYMPHOCYTES 26.8 % (15-50); MCH 27.7 pg (26.0-34.0); MCHC 32.5 g/dL (31.0-37.0); MEAN PLATELET VOLUME 12.2 fL (7.4-10.4); MONOCYTES 7.7 % (2-11); NEUTROPHILS 61.3 % (40-80); PLATELET COUNT 253 10x3/uL (130-400); RBC 4.48 10x6/uL (4.00-5.40); RDW 13.4 % (11.5-14.5); WBC 10.8 10x3/uL (4.8-10.8)
[2017-11-16 12:47] LABS: ANION GAP 16.7 mmol/L (8-16); CALCIUM 8.8 mg/dL (8.5-10.1); CARBON DIOXIDE 26.6 mmol/L (21.0-32.0); CREATININE - SERUM 1.2 mg/dL (0.6-1.3); POTASSIUM - SERUM 4.3 mmol/L (3.5-5.1)
[2017-11-16 14:35] VITALS: BP 172/74; Ht 160 cm; Wt 79.1 kg
[2017-11-16 15:53] VITALS: BP 191/62
[2017-11-16 20:56] VITALS: BP 159/52
[2017-11-17 00:46] VITALS: BP 117/41
[2017-11-17 05:03] VITALS: BP 133/42
== END 2017-11-17 17:30 | disposition home or self-care (01) ==
LOC: D.CATH 09:08 → D.M2 09:08 → D.CATH 11:30 → D.M2 13:51 → D.CLR 11-17 13:37 → D.CATH 11-17 17:30
PROVIDERS: Internal Medicine Interventional Cardiology
DX: I25.119 Atherosclerotic heart disease of native coronary artery with unspecified angina pectoris (principal); I10 Essential (primary) hypertension; E78.5 Hyperlipidemia, unspecified; Z01.812 Encounter for preprocedural laboratory examination
CPT/HCPCS: 93458; 92978; 92920; C9600 ×2